=== PATIENT | male | born 1990 | race Caucasian/White ===

== ENCOUNTER 2017-08-09 17:55 | Emergency (ER) | payer BC, OTHER ==
[~2017-08-09] VITALS: Ht 170.2 cm; Wt 67.6 kg
[2017-08-09 17:58] VITALS: TEMP 36.8; Ht 170.2 cm; Wt 67.6 kg
[2017-08-09] MEDS ORDERED: SODIUM CHLORIDE 0.9% 1000ML 1,000 ML IV STA (18:10)
[2017-08-09] MEDS ORDERED: LIDOCAINE/EPINEPH/TETRACAINE 1 EA SYR EXT STA (18:10)
--- NOTE | 2017-08-09 18:23 | EMERGENCY ROOM VISIT NOTE ---
History Report prepared by Nicole: Mimi Bowens Under the Supervision of: Dr. Chris Palacios M.D. First contact with patient: 18:03 Chief Complaint: SYNCOPE Stated Complaint: HEAD INJURY History of Present Illness The patient is a 27 year old male who presents to the Emergency Room with complaints of an episode of syncope around 40 minutes ago. The patient had not eaten today. He has a history of fasting throughout the day. He stood up and felt lightheaded. He held onto a bar that was hanging over head and then lost consciousness. He fell backwards first onto his buttocks and then onto his head. He fell onto a concrete floor. He was awake as soon as he hit the floor. The fall was not witnessed. He is currently feeling better. He denies any chest pain, SOB, headache, change in vision, dental pain, jaw pain, tongue bite, incontinence, neck pain, back pain, or abdominal pain. He denies any history of seizure or diabetes. He has a history of ADD and anxiety. He has been taking his medications as prescribed. He denies any thoughts of wanting to hurt himself or others. His tetanus is up to date. Source of History: patient, spouse/significant other Onset: 40 minutes ago Position: other (global) Quality: other (syncope) Timing: other (episodic) Associated Symptoms: No headache, No neck pain, No chest pain, No SOB, No abdominal pain, No back pain Note: Pt reports feeling lightheaded. Pt denies change in vision, dental pain, jaw pain, tongue bite, incontinence. Review of Systems See HPI for pertinent positives & negatives. A total of 10 systems reviewed and were otherwise negative. Past Medical & Surgical Medical Problems: (1) ADD (attention deficit disorder) (2) LULA (generalized anxiety disorder) Old medical records were reviewed. Nurse's notes were reviewed and I agree with. According to his he does get hypoglycemic Family History No pertinent family history stated. Social History Smoking Status: Never Smoker Drug Use: none Marital Status: Housing Status: lives with significant other Physical Exam Vital Signs Date Time Temp Pulse Resp B/P (MAP) Pulse Ox O2 Delivery O2 Flow Rate FiO2 08/09/17 19:33 68 18 127/79 95 08/09/17 18:39 72 17 118/72 98 Room Air 08/09/17 17:58 36.8 87 16 143/87 97 Room Air Physical Exam General: Non ill appearing young male, holding a towel on the back of his head, in no acute distress. Well developed well nourished, breathing comfortably on room air. Normal speech. GCS of 15. HEENT: 2 cm posterior scalp laceration. Midface is stable. Pupils are equal round and reactive to light. Extraocular movements are intact. Normal ear canals. Oropharynx is pink with moist mucous membranes. No swelling of the mouth lips or tongue. Neck: Supple with a midline trachea. No meningeal signs or stiffness, no JVD or bruits. No Stridor. Chest: Clear to auscultation bilaterally. No wheezes or rhonchi. No increased work of breathing. Heart: regular rate and rhythm. Abdomen: Soft nontender, nondistended without rebound guarding or rigidity. Extremities: No cyanosis clubbing or edema. No calf tenderness or assymetry Spine/Back. Non tender to palpation. No CVA tenderness Skin: Good turgor without rashes. Neurologic exam: Cranial nerves two through 12 are intact. Motor and sensation are intact and symmetrical throughout. Medical Decision & Procedures ER Provider Diagnostic Interpretation: Radiology results as stated below per my review and radiologist interpretation: HEAD WITHOUT CONTRAST (CT) CT DOSE: 537.48 mGy.cm HISTORY: Trauma syncope hit head TECHNIQUE: Multiaxial CT images of the head were performed without the use of intravenous contrast. A dose lowering technique was utilized adhering to the principles of ALARA. Comparison: None. Findings: The paranasal sinuses and mastoid air cells are clear. The calvarium and skull base are intact. The ventricles and sulci are within normal limits. There is no mass, hematoma, midline shift, or acute infarct. Impression: No acute intracranial abnormality. The above report was generated using voice recognition software. It may contain grammatical, syntax or spelling errors. Electronically signed by: Rai Arreguin M.D. 08/09/2017 6:53 PM Dictated Date/Time: 08/09/2017 6:52 PM Laboratory Results 08/09/17 18:29 Red Blood Count 5.25, Mean Corpuscular Volume 87.0, Mean Corpuscular Hemoglobin 29.1, Mean Corpuscular Hemoglobin Concent 33.5, Mean Platelet Volume 9.2, Neutrophils (%) (Auto) 69.1, Lymphocytes (%) (Auto) 24.3, Monocytes (%) (Auto) 4.6, Eosinophils (%) (Auto) 1.5, Basophils (%) (Auto) 0.3, Neutrophils # (Auto) 7.92, Lymphocytes # (Auto) 2.78, Monocytes # (Auto) 0.53, Eosinophils # (Auto) 0.17, Basophils # (Auto) 0.04 08/09/17 18:29 Test 08/09/17 18:29 08/09/17 18:36 White Blood Count 11.46 K/uL (4.8-10.8) Red Blood Count 5.25 M/uL (4.7-6.1) Hemoglobin 15.3 g/dL (14.0-18.0) Hematocrit 45.7 % (42-52) Mean Corpuscular Volume 87.0 fL (80-100) Mean Corpuscular Hemoglobin 29.1 pg (25-34) Mean Corpuscular Hemoglobin Concent 33.5 g/dl (32-36) Platelet Count 226 K/uL (130-400) Mean Platelet Volume 9.2 fL (7.4-10.4) Neutrophils (%) (Auto) 69.1 % Lymphocytes (%) (Auto) 24.3 % Monocytes (%) (Auto) 4.6 % Eosinophils (%) (Auto) 1.5 % Basophils (%) (Auto) 0.3 % Neutrophils # (Auto) 7.92 K/uL (1.4-6.5) Lymphocytes # (Auto) 2.78 K/uL (1.2-3.4) Monocytes # (Auto) 0.53 K/uL (0.11-0.59) Eosinophils # (Auto) 0.17 K/uL (0-0.5) Basophils # (Auto) 0.04 K/uL (0-0.2) RDW Standard Deviation 41.6 fL (36.4-46.3) RDW Coefficient of Variation 13.0 % (11.5-14.5) Immature Granulocyte % (Auto) 0.2 % Immature Granulocyte # (Auto) 0.02 K/uL (0.00-0.02) Anion Gap 9.0 mmol/L (3-11) Est Creatinine Clear Calc Drug Dose 94.3 ml/min Estimated GFR () 106.1 Estimated GFR (Non- 91.5 BUN/Creatinine Ratio 13.5 (10-20) Calcium Level 9.6 mg/dl (8.5-10.1) Total Bilirubin 1.0 mg/dl (0.2-1) Direct Bilirubin 0.2 mg/dl (0-0.2) Aspartate Amino Transf (AST/SGOT) 17 U/L (15-37) Alanine Aminotransferase (ALT/SGPT) 21 U/L (12-78) Alkaline Phosphatase 69 U/L (45-117) Total Protein 8.6 gm/dl (6.4-8.2) Albumin 4.7 gm/dl (3.4-5.0) Lipase 121 U/L (73-393) Bedside Troponin I < 0.030 ng/ml (0-0.045) Laboratory studies as stated above per my review. Medications Administered Medications (Trade) Dose Ordered Sig/Conrad Route Start Time Stop Time Status Last Admin Dose Admin Sodium Chloride 1,000 ml @ 999 mls/hr Q1H1M STAT IV 08/09/17 18:10 08/09/17 19:10 DC 08/09/17 18:34 999 MLS/HR Tetracaine/ Epinephrine/ Lidocaine (L.e.t. Gel 4%/ 1:100/0.5%) 1 ea NOW STAT EXT 08/09/17 18:10 08/09/17 18:12 DC 08/09/17 18:34 1 EA Procedure Location: Scalp Total length: 2 cm Complexity: Simple Verbal consent was obtained after the risks and benefits were explained, including but not limited to bleeding, scarring, infection, pain, and bone/ nerve damage. At this time, the risks of the procedure are less than the risks of NOT performing the procedure. A time out was taken and the correct patient and site identified. The scalp was prepped with betadine. The target area was anesthetized with LET gel. Copious irrigation was performed using saline. The skin was re-prepped with betadine, the hair cleared from the wound, and a sterile field set. The wound was explored for foreign bodies and none found. Debridement was not performed. The wound edges were approximated using 5 surgical alexa in the standard fashion. Hemostasis and excellent approximation was achieved. Antibacterial ointment and a sterile dressing applied. Detailed wound care instructions and signs and symptoms of infection reviewed with the patient. No complications and the patient tolerated the procedure well. ECG Indication: syncope Rate (beats per minute): 70 Rhythm: sinus rhythm Findings: PVC, no acute ischemic change, other (early repolarization) Comparison ECG Date: no prior available ED Course 1803: Past medical records reviewed. The patient was evaluated in room C3, and a complete history and physical examination were performed. 1809: LET Gel 1 ea EXT, NSS 1000 ml @ 999 mls/hr IV. 1838: I reevaluated the patient. He is doing well. 1905: I repaired the laceration according to the procedure note above. The patient is doing well. I discussed the results and treatment plan with him. He verbalized agreement of the treatment plan. The patient was discharged home. Medical Decision Differentials include, but are not limited to; syncope, vasovagal episode, arrhythmia, trauma, anemia, infection, electrolyte or metabolic abnormality. This patient comes in as described above. He was placed room C3. He felt lightheaded after standing up. He had not eaten. He has a small laceration on his posterior scalp which is not bleeding. His vital signs are stable. He is up-to-date on his tetanus booster. He has a normal neurologic exam. No chest pressure was presenting to suggest acute cardiac event. LET gel was applied. I did a CAT scan of his head given the trauma. EKG multiple blood testing was obtained. He was hydrated IV normal saline and was reassessed frequently. EKG does not suggest acute coronary syndrome or arrhythmia. Blood work was unremarkable. I repaired the laceration as outlined above. This patient I think had had a vasovagal episode. He feels good and like to go home. He was able ambulate without difficulty or symptoms. He is return in 5 days for suture removal and sooner if any new problems or concerns follow [facility]. Return if: recurrence of symptoms, chest pain , shortness of breath, fever chills, any problems concerns. The patient and his were happy with the plan and he was discharged home with his driving. Head Trauma GCS Score: 15 Medication Reconcilliation Current Medication List: was personally reviewed by me Blood Pressure Screening Patient's blood pressure: Normal blood pressure Blood pressure disposition: Did not require urgent referral Impression Primary Impression: Vasovagal syncope Additional Impressions: Scalp laceration Concussion Scribe Attestation The scribe's documentation has been prepared under my direction and personally reviewed by me in its entirety. I confirm that the note above accurately reflects all work, treatment, procedures, and medical decision making performed by me. Departure Information Dispostion Home / Self-Care Referrals No Doctor, Assigned (PCP) Forms HOME CARE DOCUMENTATION FORM, IMPORTANT VISIT INFORMATION Patient Instructions My [facility] Additional Instructions Rest. Drink plenty of fluids. Be careful when getting up and down. Return if: Further symptoms, chest pain, shortness of breath, problems with the wound, worsening of symptoms, fever or chills, any new problems or concerns. Return in 5-7 days for staple removal or may go to [facility]. Follow- up with [facility] this week for recheck Problem Qualifiers
[2017-08-09 18:44] LABS: BASO % 0.3 %; BASO ABS # 0.04 K/uL (0-0.2); COMPLETE YES; EOS % 1.5 %; HEMATOCRIT 45.7 % (42-52); IG% 0.2 %; LYMPH % 24.3 %; LYMPH ABS # 2.78 K/uL (1.2-3.4); MEAN CORPUSCULAR HEMOGLOBIN 29.1 pg (25-34); MEAN CORPUSCULAR HGB CONC 33.5 g/dl (32-36); MEAN PLATELET VOLUME 9.2 fL (7.4-10.4); MONO % 4.6 %; NEUT % 69.1 %; PLATELET COUNT 226 K/uL (130-400); RED BLOOD COUNT 5.25 M/uL (4.7-6.1); WHITE BLOOD COUNT 11.46 K/uL (4.8-10.8)
--- NOTE | 2017-08-09 18:54 | DIAGNOSTIC IMAGING REPORT ---
HEAD WITHOUT CONTRAST (CT) CT DOSE: 537.48 mGy.cm HISTORY: Trauma syncope hit head TECHNIQUE: Multiaxial CT images of the head were performed without the use of intravenous contrast. A dose lowering technique was utilized adhering to the principles of ALARA. Comparison: None. Findings: The paranasal sinuses and mastoid air cells are clear. The calvarium and skull base are intact. The ventricles and sulci are within normal limits. There is no mass, hematoma, midline shift, or acute infarct. Impression: No acute intracranial abnormality. The above report was generated using voice recognition software. It may contain grammatical, syntax or spelling errors. Electronically signed by: Rai Arreguin M.D. 08/09/2017 6:53 PM Dictated Date/Time: 08/09/2017 6:52 PM
[2017-08-09 19:00] LABS: BUN/CREATININE RATIO 13.5 (10-20); CALCIUM 9.6 mg/dl (8.5-10.1); CREATININE 1.1 mg/dl (0.60-1.40); POTASSIUM 3.5 mmol/L (3.5-5.1)
[2017-08-09 19:33] VITALS: BP 127/79; PULSE 68; O2SAT 95
== END 2017-08-09 19:34 | disposition home or self-care (01) ==
LOC: C.EDB 17:56 → C.EDC 19:34
DX: R55 Syncope and collapse (principal); S01.01XA Laceration without foreign body of scalp, initial encounter; S06.0X9A Concussion with loss of consciousness of unspecified duration, initial encounter; I49.3 Ventricular premature depolarization; F90.9 Attention-deficit hyperactivity disorder, unspecified type; F41.1 Generalized anxiety disorder; W01.198A Fall on same level from slipping, tripping and stumbling with subsequent striking against other object, initial encounter